=== PATIENT | female | born 1985 | race Hispanic/Latino ===

== ENCOUNTER 2022-04-06 17:45 | Emergency (ER) | payer SELFPAY ==
[2022-04-06 18:37] LABS: Urine Blood 3+ (Negative); Urine Glucose Negative (Negative); Urine Protein Trace (Negative); Urine Specific Gravity >=1.030 (1.005-1.030)
[2022-04-06 18:45] LABS: Absolute Lymphocytes (CBC) 2.2 K/uL (0.7-4.9); Hematocrit 32.9 % (36.0-45.0); Lymphocytes % 25.2 % (15.3-44.8); MCV 81.6 fL (80-100); MPV 7.5 fL (7.6-11.3); RBC Red Blood Cell Count 4.04 M/uL (3.86-4.86)
[2022-04-06 19:02] LABS: BUN Blood Urea Nitrogen 13 mg/dL (7-18); Bicarbonate 24 mmol/L (21-32); Glomerular Filtration Rate 114 ml/min (=/>90); Glucose Level 106 mg/dL (74-106); Potassium 3.5 mmol/L (3.5-5.1); Sodium Level 141 mmol/L (136-145)
[2022-04-06 19:09] LABS: HCG, Quantitative < 1 mIU/mL (1-3)
--- NOTE | 2022-04-06 19:54 | ER ---
Nurse's Notes [facility] Name: Marie Hernandez Age: 37 yrs Sex: Female : 1985 Arrival Date: 04/06/2022 Time: 17:48 Bed 11 Private MD: Diagnosis: Abnormal uterine and vaginal bleeding, unspecified Presentation: 04/06 18:08 Chief complaint: Patient states: I am and yesterday I started noticing some bm7 lower back pain and vaginal bleeding, lots of clots. Coronavirus screen: At this time, the client does not indicate any symptoms associated with coronavirus-19. Ebola Screen: No symptoms or risks identified at this time. Initial Sepsis Screen: Does the patient meet any 2 criteria? No. Patient's initial sepsis screen is negative. Does the patient have a suspected source of infection? No. Patient's initial sepsis screen is negative. Risk Assessment: Do you want to hurt yourself or someone else? Patient reports no desire to harm self or others. Onset of symptoms was April 05, 2022. Care prior to arrival: None. 18:08 Method Of Arrival: Ambulatory bm7 18:08 Acuity: ADAN 3 bm7 Triage Assessment: 18:10 General: Appears in no apparent distress. comfortable, Behavior is calm, cooperative, bm7 appropriate for age. Pain: Complains of pain in left low back and right low back Pain does not radiate. EENT: No deficits noted. No signs and/or symptoms were reported regarding the EENT system. Neuro: No deficits noted. Cardiovascular: No deficits noted. Respiratory: No deficits noted. GI: Abdomen is round non-distended, Abd is soft X 4 quads Abdomen is tender to palpation in suprapubic area Patient currently denies nausea, vomiting. : Reports vaginal bleeding that is bright red. Derm: No deficits noted. No signs and/or symptoms reported regarding the dermatologic system. Musculoskeletal: No deficits noted. No signs and/or symptoms reported regarding the musculoskeletal system. 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 - Social history:: Smoking status: Patient denies any tobacco usage or history of. Screenin:36 Abuse screen: Denies threats or abuse. Nutritional screening: No deficits noted. bm7 Tuberculosis screening: No symptoms or risk factors identified. Fall Risk None identified. Assessment: 18:36 Reassessment: No changes from previously documented assessment. bm7 19:32 Reassessment: Patient and/or family updated on plan of care and expected duration. Pain bm7 level reassessed. Patient is alert, oriented x 3, equal unlabored respirations, skin warm/dry/pink. TUBE CARRIER at bedside to assess. 19:50 Reassessment: Patient and/or family updated on plan of care and expected duration. Pain bm7 level reassessed. Patient is alert, oriented x 3, equal unlabored respirations, skin warm/dry/pink. PA at bedside to reassess. Lab needs a recollect on the ABO/RH. Pt refusing transvaginal ultrasound and wants to go. Per Eron Grissom ABO RH lab can be cancelled. Vital Signs: 18:08 BP 124 / 71; Pulse 87; Resp 16; Temp 98.2(TE); Pulse Ox 100% on R/A; Weight 64.86 kg bm7 (R); Height 5 ft. 1 in. (154.94 cm); Pain 3/10; 19:31 BP 119 / 50; Pulse 76; Resp 16; Pulse Ox 100% on R/A; Pain 2/10; bm7 18:08 Body Mass Index 27.02 (64.86 kg, 154.94 cm) bm7 ED Course: 17:48 Patient arrived in ED. as 17:49 Eron Grissom PA is PHCP. cp 17:49 Simone Rodriguez DO is Attending Physician. cp 18:08 Cherie Carrion, RN is Primary Nurse. bm7 18:10 Triage completed. bm7 18:10 Arm band placed on right wrist. bm7 18:36 No apparent distress. Resting quietly. Awaiting lab results. bm7 18:36 Patient has correct armband on for positive identification. Placed in gown. Bed in low bm7 position. Call light in reach. Side rails up X 1. Client placed on continuous cardiac and pulse oximetry monitoring. NIBP monitoring applied. Warm blanket given. Assisted to bathroom. 18:36 Initial lab(s) drawn, by me, sent to lab. Urine collected: clean catch specimen, bm7 cloudy. Inserted saline lock: 20 gauge in right antecubital area, using aseptic technique. Blood collected. Patient maintains SpO2 saturation greater than 95% on room air. 19:51 Juan R Padgett MD is Referral Physician. cp 19:57 No provider procedures requiring assistance completed. IV discontinued, intact, bm7 bleeding controlled, No redness/swelling at site. Pressure dressing applied. Administered Medications: No medications were administered Medication: 19:57 VIS not applicable for this client. bm7 Point of Care Testing: Urine : 18:36 hCG Reading: Negative; Control Reading: Positive; bm7 Outcome: 19:53 Discharge ordered by MD. cp 19:57 Discharged to home ambulatory. bm7 19:57 Condition: good 19:57 Discharge instructions given to patient, Instructed on discharge instructions, follow up and referral plans. medication usage, Demonstrated understanding of instructions, follow-up care, medications, Prescriptions given X 1. 19:58 Patient left the ED. bm7 Signatures: Queenie Lopez Corey, PA PA cp Cherie Carrion, RN RN bm7
--- NOTE | 2022-04-06 19:54 | EDPHYS ---
Physician Documentation [facility] Name: Marie Hernandez Age: 37 yrs Sex: Female : 1985 Arrival Date: 04/06/2022 Time: 17:48 Bed 11 Private MD: ED Physician Simone Rodriguez HPI: 04/06 18:09 This 37 yrs old Female presents to ER via Unassigned with complaints of cp Vaginal Bleeding - preg, unk wks. 18:09 The patient presents with vaginal bleeding that is with clots. Onset: The cp symptoms/episode began/occurred yesterday. 18:09 Associated signs and symptoms: Pertinent positives: low back pain, Pertinent negatives: cp constipation, diarrhea, dysuria, fever, vomiting. Severity of symptoms: in the emergency department the symptoms are unchanged. The patient's method of control includes nothing. 18:10 Patient reports concern for with last menstrual cycle in December 2021. Reports cp taking test that was positive but has not seen an OB. CARE TRANSITION MGR: 18:10 LMP 12/14/2021, Verified, EDC 09/20/2022, Gestational age from LMP: 16 weeks 1 daybm7 Historical: - Allergies: 18:10 No Known Allergies; bm7 - Home Meds: 18:10 None [Active]; bm7 - PMHx: 18:10 None; bm7 - PSHx: 18:10 section; bm7 - Immunization history:: Adult Immunizations up to date. - Social history:: Smoking status: Patient denies any tobacco usage or history of. ROS: 18:15 Constitutional: Negative for body aches, chills, fever, poor PO intake. cp 18:15 Eyes: Negative for injury, pain, redness, and discharge. cp 18:15 Cardiovascular: Negative for chest pain, edema, palpitations. 18:15 Respiratory: Negative for cough, shortness of breath, wheezing. 18:15 Abdomen/GI: Negative for abdominal pain, nausea, vomiting, and diarrhea. 18:15 : Positive for vaginal bleeding, Negative for urinary symptoms. 18:15 Neuro: Negative for altered mental status, dizziness, headache, numbness, weakness. 18:15 All other systems are negative. Exam: 18:20 Constitutional: The patient appears in no acute distress, alert, awake, comfortable, cp non-toxic, well developed, well nourished. 18:20 Head/Face: Normocephalic, atraumatic. cp 18:20 Eyes: Periorbital structures: appear normal, Conjunctiva: normal, no exudate, no injection, Sclera: no appreciated abnormality, Lids and lashes: appear normal, bilaterally. 18:20 ENT: External ear(s): are unremarkable, Nose: is normal, Mouth: Lips: moist, Oral mucosa: moist, Posterior pharynx: Airway: no evidence of obstruction, patent. 18:20 Chest/axilla: Inspection: normal. 18:20 Cardiovascular: Rate: normal, Rhythm: regular. 18:20 Respiratory: the patient does not display signs of respiratory distress, Respirations: normal, Breath sounds: are clear throughout, no decreased breath sounds, no stridor, no wheezing. 18:20 Abdomen/GI: Inspection: abdomen appears normal, Bowel sounds: active, all quadrants, Palpation: abdomen is soft and non-tender, in all quadrants. 18:20 Back: CVA tenderness, is absent. 18:20 Neuro: Orientation: to person, place \T\ time. Mentation: is normal, Sensation: is normal, Gait: is steady, at a normal pace, without difficulty. 19:50 : Pelvic Exam: The exam is refused by the patient/guardian. The risks and cp consequences are understood by the patient, patient declined US at this time. Vital Signs: 18:08 BP 124 / 71; Pulse 87; Resp 16; Temp 98.2(TE); Pulse Ox 100% on R/A; Weight 64.86 kg bm7 (R); Height 5 ft. 1 in. (154.94 cm); Pain 3/10; 19:31 BP 119 / 50; Pulse 76; Resp 16; Pulse Ox 100% on R/A; Pain 2/10; bm7 18:08 Body Mass Index 27.02 (64.86 kg, 154.94 cm) bm7 MDM: 18:05 Patient medically screened. cp 19:00 Differential diagnosis: ectopic , pelvic inflammatory disease, placenta cp previa, hemorrhage, ruptured ectopic , uterine fibroids, urinary tract infection, vaginosis. 19:53 Data reviewed: vital signs, nurses notes, lab test result(s). cp 19:53 Counseling: I had a detailed discussion with the patient and/or guardian regarding: the cp historical points, exam findings, and any diagnostic results supporting the discharge/admit diagnosis, lab results, the need for outpatient follow up, a family practitioner, to return to the emergency department if symptoms worsen or persist or if there are any questions or concerns that arise at home. 04/06 18:09 Order name: Abo/rh Typing; Complete Time: 11:22 cp 04/06 18:09 Order name: Basic Metabolic Panel; Complete Time: 19:22 cp 04/06 19:22 Interpretation: Normal except: CL 110; CA 8.4. cp 04/06 18:09 Order name: CBC with Diff; Complete Time: 19:22 cp 04/06 19:22 Interpretation: Normal except: HGB 11.0; HCT 32.9; RDW 15.5; MPV 7.5. cp 04/06 18:09 Order name: Quantitative Hcg; Complete Time: 19:22 cp 04/06 19:22 Interpretation: Abnormal: HCGQ < 1. cp 04/06 18:38 Order name: Urine Dipstick-Ancillary; Complete Time: 19:22 EDMS 04/06 19:51 Interpretation: Normal except: UKET Trace; UBLD 3+; UPROT Trace. cp 04/06 18:09 Order name: IV Saline Lock; Complete Time: 18:36 cp 04/06 18:09 Order name: Labs collected and sent; Complete Time: 18:36 cp 04/06 18:09 Order name: NPO; Complete Time: 18:36 cp 04/06 18:09 Order name: Urine Dipstick-Ancillary (obtain specimen); Complete Time: 18:36 cp 04/06 18:09 Order name: Urine Test (obtain specimen); Complete Time: 18:36 cp Administered Medications: No medications were administered Point of Care Testing: Urine : 18:36 hCG Reading: Negative; Control Reading: Positive; bm7 Disposition: 04/07 11:22 Co-signature as Attending Physician, Simone HARRINGTON was immediately available on-site ms3 in the Emergency Department for consultation in the care of the patient. . Disposition Summary: 04/06/22 19:53 Discharge Ordered Location: Home cp Problem: new cp Symptoms: are unchanged cp Condition: Stable cp Diagnosis - Abnormal uterine and vaginal bleeding, unspecified cp Followup: cp - With: Juan R Padgett MD - When: 2 - 3 days - Reason: Recheck today's complaints Discharge Instructions: - Discharge Summary Sheet cp - Abnormal Uterine Bleeding cp Forms: - Medication Reconciliation Form cp - Thank You Letter cp - Antibiotic Education cp - Prescription Opioid Use cp Prescriptions: - Ibuprofen 800 mg Oral Tablet - take 1 tablet by ORAL route every 8 hours As needed take with food; 30 tablet; cp Refills: 0, Product Selection Permitted Signatures: Dispatcher [employer] EDMS Eron Grissom PA PA Simone Borrego DO DO ms3 Cherie Carrion, RN RN bm7 Corrections: (The following items were deleted from the chart) 04/06 19:52 19:26 Transvaginal Study (Probe)+[email or web address] ordered. EDCA EDMS
[2022-04-06 22:38] VITALS: TEMP 98.2; O2SAT 100
[2022-04-06 22:39] VITALS: BP 119/50
== END 2022-04-06 19:58 | disposition home or self-care (01) ==
LOC: ER 17:45
DX: N93.9 Abnormal uterine and vaginal bleeding, unspecified (principal)
CPT/HCPCS: 36415; 80048; 81003; 84702; 85025; 86900; 86901; 99284